=== PATIENT | female | born 1940 | race Caucasian/White ===

== ENCOUNTER → 2017-03-12 | Day surgery (SDC) | payer MEDICARE ==
[~2017-03-12] VITALS: Ht 149.9 cm; Wt 77.6 kg
[~2017-03-12] MED LIST: 0.9% Sodium Chloride 1,000 ML IV SCH; ALBU8.5H2 INHALATION; ALEN70TA2 PO; ALPH200T PO; ASPI325T32 PO; ATRV10T PO; BRIM5DRO OP; CHOL4PAC PO; FENO160T14 PO; GABA-502 PO; GLUT500T8 PO; INSLIS SUBQ; INSU100V7 SUBQ; LEVO200T6 PO; LOPE2CAP PO; LOSA100T3 PO; MS15TCR PO; OXYC5CAP4 PO; PANT40TA3 PO; Sodium Chloride LOK Flush 10 mL Syringe IV PRN; VALA100026 PO; WAL-ZYR PO; fentaNYL-PF 50 mCg/mL 2 mL Inj IVPUSH PRN
[2017-03-12 08:36] VITALS: BP 171/98; PULSE 90; RESP 14; O2SAT 96
[2017-03-12 09:11] VITALS: BP 157/61; PULSE 78; RESP 16; O2SAT 94
[2017-03-12 09:24] VITALS: BP 144/80; PULSE 92; RESP 14; O2SAT 98
--- NOTE | 2017-03-12 12:00 | ENDO ---
[address] [address] ENDOSCOPY PROCEDURE PATIENT: AMANUEL BHATT : 1940 MR#: [id number] ADMIT: 03/12/2017 JOB ID: [id number] TYPE OF PROCEDURE: Colonoscopy. INDICATION: Diarrhea. Patient's ASA classification is two. Mallampati score is two. MEDICATIONS: 1. Versed 4 mg. 2. Fentanyl 75 mcg. INSTRUMENT USED: PCF-H180AL PREP QUALITY: Fair. PROCEDURE DETAILS: After informed consent was obtained, the patient was brought in to the GI suite, where she was placed on oxygen via nasal cannula and monitored with continuous pulse oximeter, telemetry, and blood pressure monitoring. A time-out was performed. Then, she was placed in a left lateral decubitus position and medications were administered for sedation. Digital rectal exam was performed and was unremarkable. The colonoscope was then inserted into the rectum and advanced under direct visualization to the terminal ileum which was identified by the presence of the ileocecal valve and mucosa of the terminal ileum. Once the terminal ileum was reached, the colonoscope was withdrawn back to the rectum. Mucosa and lumen were examined. In the rectum, retroflexion was performed. Following retroflexion, remaining air in the rectum was suctioned, and procedure was completed. FINDINGS: 1. Normal appearing terminal ileum. Multiple random biopsies were obtained. 2. There was evidence of a colo-colo anastomosis at 20 cm, consistent with patient's prior history of colon surgery. 3. The colon mucosa from the cecum to the proximal rectum appeared unremarkable. Multiple random biopsies were obtained. In the distal rectum, the mucosa had a hyperplastic appearance. Multiple random biopsies were obtained. 4. Retroflexed views in the rectum were unremarkable. IMPRESSION: 1. [place]-colo anastomosis at 20 cm. 2. Hyperplastic appearing mucosa in the distal rectum, otherwise normal exam from rectum to terminal ileum. RECOMMENDATIONS: 1. Await biopsy results. 2. Continue current medications. 3. Follow up in GI clinic in two to four weeks. COMPLICATIONS: None. ESTIMATED BLOOD LOSS: Less than 5 mL. Cc: Joselin Marinelli
--- NOTE | 2017-03-13 13:23 | PATH ---
SURGICAL PATHOLOGY Attending Physician:Justa Ruff CASE STATUS: Signed Out PATIENT NAME: AMANUEL BAHTT PID: [id number] : 1940 DATE COLLECTED:03/12/2017 16:23 SPECIMEN: 1: Ileum, Biopsy 2: Colon, Biopsy 3: Rectum, Biopsy CLINICAL HISTORY: DIARRHEA 1). TERMINAL ILEUM BIOPSY 2). RANDOM COLON BIOPSY 3). RECTAL BIOPSY FINAL DIAGNOSIS: 1. Terminal Ileum Biopsy: Fragments of normal appearing terminal ileum mucosa. Negative for granulomas. Negative for significant inflammation, dysplasia and malignancy. 2. Random Colon Biopsies: Fragments of normal appearing colon mucosa. Negative for significant architectural distortion. Negative for significant inflammation, dysplasia and malignancy. 3. Rectal Biopsy: Fragments of normal appearing rectal mucosa. Negative for significant architectural distortion. Negative for significant inflammation, dysplasia, and malignancy. ICD10: R19.7 GROSS DESCRIPTION: The specimen is received in three formalin filled containers labeled with the patient's name. 1). The specimen is labeled " TI " and consists of a 0.3 x 0.2 x 0.2 CM portion of tissue which is entirely submitted in cassette 1A. 2). The specimen is labeled "random colon" and consists of multiple portions of tissue which aggregate to 0.6 x 0.6 x 0.2 CM. The specimen is entirely submitted in cassette 2A. 3). The specimen is labeled "rectal end "and consists of 2 portions of tissue which aggregate to 0.3 x 0.2 x 0.2 seen. The specimen is entirely submitted in cassette 3A. 03/12/2017DC ICD-9 CODES: CPT CODES: 1: 86582 2: 00125 3: 36850 Electronically Signed Out Keo Morse MD [facility] Pathology [facility], [place] [address] Technical component performed at [facility], [address] [place] [address] [address], [place], [address]
== END | disposition home or self-care (01) ==
LOC: END 00:09
PROVIDERS: ATTEND Internal Medicine Gastroenterology
DX: R19.7 Diarrhea, unspecified (principal); K63.89 Other specified diseases of intestine; E11.9 Type 2 diabetes mellitus without complications; Z79.4 Long term (current) use of insulin; Z79.82 Long term (current) use of aspirin; Z79.899 Other long term (current) drug therapy; Z88.8 Allergy status to other drugs, medicaments and biological substances
CPT/HCPCS: 45380; 88305; G0500; J2250; J3010; J7030